=== PATIENT | male | born 1960 | race Two or more races ===

== ENCOUNTER 2017-02-12 12:33 | Emergency (ER) | payer MEDICAID ==
[~2017-02-12] VITALS: Ht 190.5 cm; Wt 144.2 kg
[~2017-02-12 12:33] MED LIST: ASPIRIN EC81 MG ORAL; BACTRIM-DS1 EA ORAL; METFORMIN HCL500 M1 ORAL; NKM
[2017-02-12 12:48] VITALS: BP 152/93
[2017-02-12] MEDS ORDERED: NKM (12:51)
--- NOTE | 2017-02-12 13:11 | Emergency Room Report ---
History of Present Illness General Chief Complaint: Skin Rash/Abscess Source: Patient, Medical Record Present Illness HPI 56 YO Male presents to the ED c/o worsening of LE wound with erythema and ulcer of the right lateral calf. x 3 weeks. Pt denies appreciable pain, he reports 3/10 tenderness that is exacerbated primarily with palpation. Patient reports that his PCP told him that he was diabetic and prescribed him medications however he felt that he did not have the symptoms that were described on his discharge paperwork so he never filled his prescription. Pt states his PCP rx'd him cream that he has been applying to wound, but feels has made the wound worse/bigger. Patient also states he was not prescribed a glucometer. Patient denies trauma or fall prior to onset of his symptoms. Patient reports decreased sensation in the bilateral lower extremities for "months". Patient denies posterior calf tenderness or claudication. He reports history of high blood pressure. Denies polyuria, polydipsia, or abdominal pain. Denies numbness tingling or loss of sensation or gross motor movements of the extremities, incontinence of bowel or bladder. Denies CP, Palpitations, LOC , AMS, dizziness, Changes in Vision, Sensation, paresthesias, or a sudden severe headache. Allergies: Coded Allergies: No Known Allergies (Unverified , 05/17/16) Patient History Past Medical History: see triage record Past Surgical History: none Pertinent Family History: none Immunizations: UTD Reviewed Nursing Documentation: PMH: Agreed, PSxH: Agreed Nursing Documentation-PM Past Medical History: No History, Except For Hx Cardiac Problems: Yes - Varicose vein surgery on right leg Hx Diabetes: Yes Hx Cancer: No Hx Gastrointestinal Problems: No Hx Neurological Problems: No Review of Systems All Other Systems: negative except mentioned in HPI Physical Exam Vital Signs Date Time Temp Pulse Resp B/P Pulse Ox O2 Delivery O2 Flow Rate FiO2 02/12/17 12:48 98.2 74 17 152/93 97 Room Air Sp02 EP Interpretation: reviewed, normal General Appearance: no apparent distress, alert, GCS 15, non-toxic Head: normocephalic, atraumatic Eyes: bilateral eye PERRL, bilateral eye normal inspection ENT: hearing grossly normal, normal pharynx, no angioedema, normal voice Neck: full range of motion, supple/symm/no masses Respiratory: lungs clear, normal breath sounds, speaking full sentences Cardiovascular #1: regular rate, rhythm, normal capillary refill, edema Cardiovascular #2: 2+ dorsalis pedis (R), 2+ dorsalis pedis (L) Genitourinary: normal inspection Musculoskeletal: back normal, gait/station normal, normal range of motion, tender - ttp to the anterior right calf, no posterior calf pain. swelling is bilateral LE's, erythema about the ulcer present on the right anteriolateral posada. 2.5cm in diameter. Neurologic: alert, oriented x3, responsive, motor strength/tone normal, sensory intact, normal gait Psychiatric: judgement/insight normal, memory normal, mood/affect normal Skin: no rash, warm/dry, well hydrated, other - swelling is bilateral LE's, erythema about the ulcer present on the right anteriolateral posada. 2.5cm in diameter. erythema does not extend into the posterior calf. Medical Decision Making PA Attestation Dr. Barker is my supervising Physician whom patient management has been discussed with. Diagnostic Impression: Primary Impression: Cellulitis Qualified Codes: L03.115 - Cellulitis of right lower limb Additional Impression: Diabetic ulcer of calf ER Course 56 YO Male presents to the ED c/o worsening of LE wound with erythema and ulcer of the right lateral calf. x 3 weeks. Pt denies appreciable pain, he reports 3/10 tenderness that is exacerbated primarily with palpation. Patient reports that his PCP told him that he was diabetic and prescribed him medications however he felt that he did not have the symptoms that were described on his discharge paperwork so he never filled his prescription. Pt states his PCP rx'd him cream that he has been applying to wound, but feels has made the wound worse/bigger. Patient also states he was not prescribed a glucometer. Patient denies trauma or fall prior to onset of his symptoms. Patient reports decreased sensation in the bilateral lower extremities for "months". Patient denies posterior calf tenderness or claudication. He reports history of high blood pressure. Denies polyuria, polydipsia, or abdominal pain. Denies numbness tingling or loss of sensation or gross motor movements of the extremities, incontinence of bowel or bladder. Denies CP, Palpitations, LOC , AMS, dizziness, Changes in Vision, Sensation, paresthesias, or a sudden severe headache. Ddx considered but are not limited to cellulitis, DVT, necrotizing fasciitis, osteomyelitis, fracture, d/L, gout Vital signs: are WNL, pt. is afebrile H&PE are most consistent with diabetic leg ulcer with secondary cellulitis. ORDERS: -CBC: no leukocytosis, unremarkable. -BMP: elevated glucose of 303 ED INTERVENTIONS: -Vancomycin IV -Metformin PO - Wound care/ dressing applied by RN. DISCHARGE: At this time pt. is stable for d/c to home with PO abx, and recommend [facility] and strict glydemic control. Pt. is also rx'd for glucometer, strips, and instructed to keep a log of glucose. Will provide printed patient care instructions, and any necessary prescriptions. Care plan and follow up instructions have been discussed with the patient prior to discharge. Labs Test 02/12/17 13:55 White Blood Count 8.0 K/UL (4.8-10.8) Red Blood Count 5.20 M/UL (4.70-6.10) Hemoglobin 16.0 G/DL (14.2-18.0) Hematocrit 49.1 % (42.0-52.0) Mean Corpuscular Volume 95 FL (80-99) Mean Corpuscular Hemoglobin 30.9 PG (27.0-31.0) Mean Corpuscular Hemoglobin Concent 32.6 G/DL (32.0-36.0) Red Cell Distribution Width 11.7 % (11.6-14.8) Platelet Count 190 K/UL (150-450) Mean Platelet Volume 9.5 FL (6.5-10.1) Neutrophils (%) (Auto) 57.3 % (45.0-75.0) Lymphocytes (%) (Auto) 29.7 % (20.0-45.0) Monocytes (%) (Auto) 6.7 % (1.0-10.0) Eosinophils (%) (Auto) 5.3 % (0.0-3.0) Basophils (%) (Auto) 1.0 % (0.0-2.0) Sodium Level 135 mEQ/L (135-145) Potassium Level 4.2 mEQ/L (3.4-4.9) Chloride Level 94 mEQ/L (98-107) Carbon Dioxide Level 24 mEQ/L (20-30) Anion Gap 17 (5-15) Blood Urea Nitrogen 13 mg/dL (7-23) Creatinine 0.7 mg/dL (0.7-1.2) Estimat Glomerular Filtration Rate > 60 mL/min (>60) Glucose Level 303 mg/dL (74-106) Calcium Level 9.5 mg/dL (8.6-10.2) Total Bilirubin 0.4 mg/dL (0.0-1.2) Aspartate Amino Transf (AST/SGOT) 19 U/L (5-40) Alanine Aminotransferase (ALT/SGPT) 34 U/L (3-41) Alkaline Phosphatase 94 U/L (40-129) Total Protein 8.0 g/dL (6.6-8.7) Albumin 4.0 g/dL (3.5-5.2) Globulin 4.0 g/dL Albumin/Globulin Ratio 1.0 (1.0-2.7) Last Vital Signs Date Time Temp Pulse Resp B/P Pulse Ox O2 Delivery O2 Flow Rate FiO2 02/12/17 12:48 98.2 74 17 152/93 97 Room Air Disposition: HOME, SELF-CARE Condition: Stable Scripts Trimethoprim/Sulfamethoxazole 160/800* (BACTRIM DS TABLET*) 1 Each Tablet 1 TAB ORAL TWICE A DAY for 7 Days, #14 TAB Prov: Karly Omer P.A. 02/12/17 Cephalexin* (KEFLEX*) 500 Mg Capsule 500 MG ORAL EVERY 12 HOURS for 10 Days, #20 CAP 0 Refills Prov: Karly Omer P.A. 02/12/17 Blood-Glucose Meter (BLOOD GLUCOSE METER) 1 Each Each 1 EACH MC BID, #1 Prov: Karly Omer.A. 02/12/17 Metformin Hcl* (METFORMIN HCL*) 500 Mg Tablet 500 MG ORAL TWICE A DAY for 30 Days, #60 TAB Prov: Kalry Omer P.A. 02/12/17 Patient Instructions: Blood Glucose Monitoring, Adult, Diabetes Mellitus and Food, Diabetes and Foot Care, Peripheral Neuropathy Additional Instructions: Take medications as directed. Follow up with PCP in 3 days to evaluate blood sugar management * Follow up with a CERAMIC DESIGN ENGINEER *8 Return sooner to ED if new symptoms occur, or current symptoms become worse. Take your diabetic medications Check your Blood sugar twice a day in the morning and at night , make sure to write it down/keep a log to bring with you to your doctor appointments - Please note that this Emergency Department Report was dictated using [employer] platforms technology software, occasionally this can lead to erroneous entry secondary to interpretation by the dictation equipment. Karly Omer. Feb 12, 2017 13:11
[2017-02-12] MEDS ORDERED: Vancomycin 1.5gm/D5W 250ml 325 ML IVPB ONE (13:45)
[2017-02-12 14:08] LABS: EOSINOPHILS % (AUTO) 5.3 % (0.0-3.0); LYMPHOCYTES % (AUTO) 29.7 % (20.0-45.0); MEAN CORPUSCULAR HEMOGLOBIN 30.9 PG (27.0-31.0); MEAN CORPUSCULAR HGB CONC 32.6 G/DL (32.0-36.0); MEAN CORPUSCULAR VOLUME 95 FL (80-99); MEAN PLATELET VOLUME 9.5 FL (6.5-10.1); MONOCYTES % (AUTO) 6.7 % (1.0-10.0); NEUTROPHILS % (AUTO) 57.3 % (45.0-75.0); PLATELET COUNT 190 K/UL (150-450); RED CELL DISTRIBUTION WIDTH 11.7 % (11.6-14.8)
[2017-02-12 14:24] LABS: ALANINE AMINOTRANSFERASE 34 U/L (3-41); ANION GAP 17 (5-15); ASPARTATE AMINO TRANSFERASE 19 U/L (5-40); CALCIUM 9.5 mg/dL (8.6-10.2); CARBON DIOXIDE 24 mEQ/L (20-30); CHLORIDE 94 mEQ/L (98-107); CREATININE 0.7 mg/dL (0.7-1.2); GLOMERULAR FILTRATION RATE > 60 mL/min (>60); HEMOLYSIS 5; POTASSIUM 4.2 mEQ/L (3.4-4.9); SODIUM 135 mEQ/L (135-145)
[2017-02-12] MEDS ORDERED: metFORMIN 500mg tab ORAL SCH (16:30)
[2017-02-12] MEDS ORDERED: BLOOD GLUCOSE1 EAC1 MC (17:00)
[2017-02-12] MEDS ORDERED: BACTRIM DS TAB1 EAC1 ORAL (17:00)
[2017-02-12] MEDS ORDERED: METFORMIN HCL500 M1 ORAL (17:00)
[2017-02-12] MEDS ORDERED: CEPHALEXIN500 MG ORAL (17:00)
[2017-02-12 17:45] VITALS: BP 152/95
== END 2017-02-12 18:23 | disposition home or self-care (01) ==
LOC: EMR 13:16
DX: L03.115 Cellulitis of right lower limb (principal); E11.622 Type 2 diabetes mellitus with other skin ulcer; L97.819 Non-pressure chronic ulcer of other part of right lower leg with unspecified severity; L97.829 Non-pressure chronic ulcer of other part of left lower leg with unspecified severity
CPT/HCPCS: 36415; 80053; 82962; 85025; 96365; 96366; 99284; J3370; 96374

== ENCOUNTER 2017-07-14 23:56 | Emergency (ER) | payer MEDICAID ==
[~2017-07-14] VITALS: Ht 190.5 cm; Wt 140.6 kg
[~2017-07-14 23:56] MED LIST changes: +BACTRIM DS TAB1 EAC1 ORAL; +BLOOD GLUCOSE1 EAC1 MC; +CEPHALEXIN500 MG ORAL
[2017-07-15] MEDS ORDERED: Ketorolac 30mg Inj IV ONE (00:45)
--- NOTE | 2017-07-15 00:58 | Emergency Room Report ---
History of Present Illness General Chief Complaint: Skin Rash/Abscess Source: Patient Present Illness HPI 57-year-old male with diabetes and high blood pressure walks in with 2 days of worsening pain, redness, and swelling to right foot. Also endorsing some pus discharge between toes. States things were removed in the right foot by surgery years ago because of "blocks". States saw PMD a few months ago who gave cream to put on right foot Denies fever, chills. Complaining of pain to area, has been taking ibuprofen with some improvement. Allergies: Coded Allergies: No Known Allergies (Unverified , 05/17/16) Patient History Past Medical History: DM, HTN Past Surgical History: other - "veins removed from right leg" Pertinent Family History: none Social History: Denies: smoking, alcohol use, drug use Immunizations: UTD Reviewed Nursing Documentation: PMH: Agreed, PSxH: Agreed Nursing Documentation-PMH Hx Cardiac Problems: Yes - Varicose vein surgery on right leg Hx Diabetes: Yes Hx Cancer: No Hx Gastrointestinal Problems: No Hx Neurological Problems: No Review of Systems All Other Systems: negative except mentioned in HPI Physical Exam Vital Signs Date Time Temp Pulse Resp B/P (MAP) Pulse Ox O2 Delivery O2 Flow Rate FiO2 07/14/17 23:59 98.1 79 18 154/87 95 Room Air Sp02 EP Interpretation: reviewed, normal General Appearance: normal inspection, well appearing, no apparent distress, alert, GCS 15, non-toxic Head: normocephalic, atraumatic Eyes: bilateral eye PERRL, bilateral eye EOMI ENT: normal ENT inspection, hearing grossly normal, normal voice Neck: normal inspection, full range of motion, supple, no bony tend Respiratory: normal inspection, lungs clear, normal breath sounds, no respiratory distress, no retraction, no wheezing Cardiovascular #1: regular rate, rhythm, no edema Gastrointestinal: normal inspection, normal bowel sounds, non tender, soft, no guarding, no hernia Genitourinary: no CVA tenderness Musculoskeletal: normal inspection, back normal, normal range of motion, Evans' s Sign negative, other - right leg: chronic venous stasis dermatitis; dry, scaly , hairless, shiny, hardened skin. Right foot has dorsal erythema, some pus between toes, mild appreciable topical warmth. Able to move toes. Neurologic: normal inspection, alert, oriented x3, responsive, cloth layer III-XII nml as tested, speech normal Psychiatric: normal inspection, judgement/insight normal, mood/affect normal Skin: normal inspection, normal color, no rash Medical Decision Making Diagnostic Impression: Primary Impression: Right foot pain Additional Impression: Cellulitis and abscess of foot ER Course 57-year-old male with right foot pain No leukocytosis or labs Elevated glucose consistent with known diabetes however K. is normal and anion gap is normal, unlikely DKA. X-ray on stat read review negative for osteo. Will treat with outpatient antibiotics, Bactrim and Keflex Advise close primary care followup understands to return for worsening pain, infection, fever chills ER course: Patient has remained stable during ED stay. Disposition: Patient is to be discharged to home. Prescriptions given are keflex, bactrim Patient is instructed to follow up with their primary care doctor within 5 days. Strict return precautions discussed with patient such as fever, chills, worsening/severe pain, nausea, vomiting, which may indicate severe illness. Patient verbalizes understanding and agrees with plan. Please note that this Emergency Department Report was dictated using Mapplump receiver technology software, occasionally this can lead to erroneous entry secondary to interpretation by the dictation equipment Last Vital Signs Date Time Temp Pulse Resp B/P (MAP) Pulse Ox O2 Delivery O2 Flow Rate FiO2 07/14/17 23:59 98.1 79 18 154/87 95 Room Air Status: improved Disposition: HOME, SELF-CARE Scripts Cephalexin* (KEFLEX*) 500 Mg Capsule 500 MG ORAL Q6H for 7 Days, #28 CAP 0 Refills Prov: LOUIS HERRERA M.D. 07/15/17 Trimethoprim/Sulfamethoxazole 160/800* (BACTRIM DS TABLET*) 1 Each Tablet 1 TAB ORAL Q12H for 7 Days, #14 TAB 0 Refills Prov: LOUIS HERRERA M.D. 07/15/17 LOUIS HERRERA M.D. Jul 15, 2017 00:58
[2017-07-15 01:08] LABS: EOSINOPHILS % (AUTO) 5.1 % (0.0-3.0); LYMPHOCYTES % (AUTO) 24.4 % (20.0-45.0); MEAN CORPUSCULAR HEMOGLOBIN 31.3 PG (27.0-31.0); MEAN CORPUSCULAR HGB CONC 33.3 G/DL (32.0-36.0); MEAN CORPUSCULAR VOLUME 94 FL (80-99); MEAN PLATELET VOLUME 9.9 FL (6.5-10.1); MONOCYTES % (AUTO) 6.9 % (1.0-10.0); NEUTROPHILS % (AUTO) 62.7 % (45.0-75.0); PLATELET COUNT 204 K/UL (150-450); RED BLOOD COUNT 5.06 M/UL (4.70-6.10); RED CELL DISTRIBUTION WIDTH 11.7 % (11.6-14.8); WHITE BLOOD COUNT 9.2 K/UL (4.8-10.8)
[2017-07-15 01:35] LABS: ALANINE AMINOTRANSFERASE 32 U/L (12-78); ALBUMIN/GLOBULIN RATIO 0.8 (1.0-2.7); ANION GAP 8 mmol/L (5-15); ASPARTATE AMINO TRANSFERASE 10 U/L (15-37); CALCIUM 9.4 MG/DL (8.5-10.1); CARBON DIOXIDE 28 MMOL/L (21-32); CHLORIDE 99 MMOL/L (98-107); GLOMERULAR FILTRATION RATE > 60 mL/min (>60); POTASSIUM 3.9 MMOL/L (3.5-5.1); SODIUM 135 MMOL/L (136-145); TOTAL PROTEIN 8.5 G/DL (6.4-8.2)
[2017-07-15] MEDS ORDERED: KEFLEX500 MG ORAL (01:51)
[2017-07-15] MEDS ORDERED: BACTRIM DS TAB1 EAC1 ORAL (01:51)
[2017-07-15 02:07] VITALS: BP 154/87
--- NOTE | 2017-07-15 11:50 | Diagnostic Imaging Report ---
Indication: PAIN Technique: 3 views right foot Comparison: none Findings: No acute fractures. No dislocations. There is minimal degenerative change of the first metatarsal phalangeal joint. The remaining joint spaces are preserved Impression: No acute process This agrees with the preliminary interpretation provided overnight by [employer] teleradiology service.
== END 2017-07-15 02:07 | disposition home or self-care (01) ==
LOC: EMR 07-15 00:20
DX: M79.671 Pain in right foot (principal); L03.115 Cellulitis of right lower limb; E11.9 Type 2 diabetes mellitus without complications; I10 Essential (primary) hypertension
CPT/HCPCS: 36415; 73630; 80053; 85025; 96374; 99284; J1885

== ENCOUNTER 2018-11-10 19:39 | Emergency (ER) | payer MEDICAID ==
[~2018-11-10] VITALS: Ht 190.5 cm; Wt 132.0 kg
[~2018-11-10 19:39] MED LIST changes: +KEFLEX500 MG ORAL
[2018-11-10 19:41] VITALS: BP 149/88
[2018-11-10] MEDS ORDERED: LOVASTATIN20 MG ORAL (19:48)
[2018-11-10] MEDS ORDERED: ENALAPRIL-HCTZ1 EACH ORAL (19:48)
[2018-11-10] MEDS ORDERED: IBUPROFEN800 MG ORAL (19:48)
--- NOTE | 2018-11-10 20:18 | Emergency Room Report ---
History of Present Illness General Chief Complaint: Pain Source: Patient Present Illness HPI 58-year-old male patient presents the ER complaining of left foot pain for the past 2 weeks. Reports pain is on the bottom of his left foot. Denies acute injury or accident. Denies calf pain. Denies chest pain or shortness of breath. Reports history of peripheral vascular disease in his right l denies ulcer or open wound. Reports for similar symptoms, states that he was told it related to his diabetes. States his been taking Motrin for pain which helps to alleviate pain symptoms. Denies other aggravating or relieving factors. Allergies: Coded Allergies: No Known Allergies (Unverified , 05/17/16) Patient History Past Medical History: see triage record Reviewed Nursing Documentation: PMH: Agreed; PSxH: Agreed Nursing Documentation-PMH Hx Cardiac Problems: Yes - Varicose vein surgery on right leg Hx Hypertension: Yes Hx Diabetes: Yes Hx Cancer: No Hx Gastrointestinal Problems: No Hx Neurological Problems: No Review of Systems All Other Systems: negative except mentioned in HPI Physical Exam Vital Signs Date Time Temp Pulse Resp B/P (MAP) Pulse Ox O2 Delivery O2 Flow Rate FiO2 11/10/18 19:41 98.2 79 18 149/88 95 Room Air Sp02 EP Interpretation: reviewed, normal General Appearance: well appearing, no apparent distress, alert, GCS 15, non- toxic Head: normocephalic, atraumatic Eyes: bilateral eye normal inspection, bilateral eye PERRL ENT: hearing grossly normal, normal pharynx, no angioedema, normal voice, uvula midline, moist mucus membranes Neck: full range of motion Respiratory: lungs clear, normal breath sounds, no rhonchi, no respiratory distress, no accessory muscle use, no wheezing, speaking full sentences Cardiovascular #1: regular rate, rhythm, no edema, normal capillary refill Cardiovascular #2: 2+ dorsalis pedis (R), 2+ dorsalis pedis (L) Musculoskeletal: back normal, digits/nails normal, gait/station normal, normal range of motion, non-tender, no calf tenderness, Evans's Sign negative, other - NVI, cap refill less than 2 seconds, no erythema, no edema, no gouty tophi, no podagra Neurologic: alert, oriented x3, responsive, motor strength/tone normal, sensory intact Skin: no rash, other - No stasis ulcers Medical Decision Making PA Attestation Dr. Yadav is my supervising Physician whom patient management has been discussed with. Diagnostic Impression: Primary Impression: Foot pain, left Additional Impression: Hx of diabetes mellitus ER Course Pt. presents to the ED c/o left foot pain. Ddx considered but are not limited to fracture, sprain, strain, contusion, dislocation, DVT, cellulitis, peripheral vascular disease, arthritis, gout. Negative Homans sign, denies calf pain, no unilateral leg swelling, low suspicion for DVT per well's criteria. No erythema, no warmth to touch, no fever, nontoxic appearing, low suspicion for septic joint. Soft compartments, no pulselessness, no pallor, no paresthesias, low suspicion for compartment syndrome at this time. Vital signs: are WNL, pt. is afebrile Ordered X-ray and pain medication. ER COURSE Provided with pain medication. An X-ray of the left foot shows no acute fracture. Discuss results with the patient. Provided patient with copy of results. Instructed patient to followup with PCP and discuss results of report with patient, discuss need for further treatment and referral. Cane provided. Patient instructed on RICE method: rest, ice, compression, elevation. Patient instructed on rest, ice and heat. Patient instructed to be WBAT Provided with contact information for sales route driver. Contact information for orthopedic urgent care provided, follow-up with urgent care if unable to followup with primary care provider and get referral to language specialist. Followup with primary care provider. Discuss referral to ortho/pain management/ PT as needed. Discuss further imaging with MRI/CT as needed. Prior to discharge, patient requesting to have blood glucose checked and requesting prescription for glucometer and blood glucose strips. States" to ask for these from their primary care provider last week. Blood glucose in the ER is 213, patient states that he took his metformin earlier today. Does not require immediate intervention in the ER. Will discharge home with prescription for glucometer and glucose test strips. Advised patient follow with primary care provider to discuss further treatment and evaluation. Discussed need for diet and exercise to help control blood glucose. ER precautions given. DISCHARGE: At this time pt. is stable for d/c to home. Patient is resting comfortably, in no acute distress, nontoxic appearing, talking without difficulty. Will provide printed patient care instructions, and any necessary prescriptions. Patient instructed to follow with primary care provider in 3 - 5 days and to request further follow-up as needed. Care plan and follow up instructions have been discussed with the patient prior to discharge. Take medications as directed. Patient questions asked and answered. Patient reports understanding and agreement to treatment plan. ER precautions given, patient instructed to return to ER immediately for any new or worsening of symptoms. - Please note that this Emergency Department Report was dictated using [employer] Comfortairplane cover maker technology software, occasionally this can lead to erroneous entry secondary to interpretation by the dictation equipment. Other X-Ray Diagnostic Results Other X-Ray Diagnostic Results : X-Ray ordered: Left foot # of Views/Limited Vs Complete: 3 View Indication: Pain EP Interpretation: Yes PA Xray: Interpretation reviewed, by supervising MD, and agrees with findings. Interpretation: no dislocation, no soft tissue swelling, no fractures, other - Degenerative changes, calcaneal heel spur Impression: No acute disease PA Scribe Text Mele Boone PA-C Last Vital Signs Date Time Temp Pulse Resp B/P (MAP) Pulse Ox O2 Delivery O2 Flow Rate FiO2 11/10/18 19:41 98.2 79 18 149/88 95 Room Air Status: improved Disposition: HOME, SELF-CARE Condition: Stable Scripts Blood Sugar Diagnostic (GLUCOSE TEST STRIP) 1 Each Strip EACH , #50 Prov: Noel Boone 11/10/18 Blood-Glucose Meter (ADVOCATE BLOOD GLUCOSE MONITOR) 1 Each Each EACH , #1 Prov: Noel Boone 11/10/18 Ibuprofen* (MOTRIN*) 600 Mg Tablet 600 MG ORAL Q8H PRN for For Pain, #30 TAB 0 Refills Prov: Noel Boone 11/10/18 Patient Instructions: Diabetes and Foot Care, Foot Contusion Additional Instructions: Follow-up with sales route driver. Patient instructed to follow up with primary care provider and discuss further referral to orthopedics/physical therapy/pain management as needed. If unable to followup with PCP, followup with orthopedic urgent care in 5-7 days , call to schedule appointment. Patient instructed on RICE method: rest, ice, compression, elevation. Patient instructed to NWB. Follow-up with vascular specialist and surgeon. Follow-up with primary care provider to discuss blood sugar and diabetes control. Take medications as directed. Patient questions asked and answered. ER precautions given, patient instructed to return to ER immediately for any new or worsening of symptoms. [facility] [address] [facility] [address] [facility], [address] [email or web address] Noel Boone Nov 10, 2018 20:18
[2018-11-10 20:58] VITALS: BP 149/88
[2018-11-10] MEDS ORDERED: IBUPROFEN600 MG ORAL (20:58)
[2018-11-10] MEDS ORDERED: ADVOCATE BLOOD1 EACH MC (20:58)
[2018-11-10] MEDS ORDERED: GLUCOSE TEST S1 EACH MC (20:58)
--- NOTE | 2018-11-11 12:21 | Diagnostic Imaging Report ---
Indication: Foot pain Comparison: None Findings: 3 views of the left foot were obtained. No acute fractures, malalignment, erosions or periostitis are identified. Soft tissues are unremarkable. Impression: No acute findings
== END 2018-11-10 21:00 | disposition home or self-care (01) ==
LOC: EMR 20:25
DX: M79.672 Pain in left foot (principal); E11.9 Type 2 diabetes mellitus without complications; I10 Essential (primary) hypertension; I73.9 Peripheral vascular disease, unspecified
CPT/HCPCS: 82962; 99283

== ENCOUNTER 2020-04-02 23:09 | Emergency (ER) | payer MEDICAID ==
[~2020-04-02] VITALS: Ht 190.5 cm; Wt 136.1 kg
[~2020-04-02 23:09] MED LIST changes: +ADVOCATE BLOOD1 EACH MC; +ENALAPRIL-HCTZ1 EACH ORAL; +GLUCOSE TEST S1 EACH MC; +IBUPROFEN600 MG ORAL; +IBUPROFEN800 MG ORAL; +LOVASTATIN20 MG ORAL
--- NOTE | 2020-04-02 23:15 | NUR ---
ED Nurse Note: Walk-in patient with complaints of pain at right anterior lower leg due to venous ulcer.
[2020-04-02] MEDS ORDERED: BACITRACIN15 GM TOPIC (23:47)
[2020-04-02] MEDS ORDERED: CEPHALEXIN500 MG ORAL (23:47)
[2020-04-03] MEDS ORDERED: Bacitracin Oint UD TOPIC ONE
[2020-04-03] MEDS ORDERED: Cephalexin 500mg cap ORAL ONE
[2020-04-03 00:03] VITALS: BP 154/80
--- NOTE | 2020-04-03 00:03 | NUR ---
ER DISCHARGE NOTE: Patient is cleared to be discharged per ERMD. Wound irrigated, antibacterial ointment placed and would dressed with 4X4 guaze, coban and kerlix to create pressure at the site. Patient is in stable condition, verbalized understanding of discharge instructions and departed with all belongings. Patient intends to call someone to pick him up but no one answered. Alternative options for transport explored.
--- NOTE | 2020-04-03 00:38 | Emergency Room Report ---
History of Present Illness General Chief Complaint: Lower Extremity Injury Source: Patient Present Illness HPI 59-year-old male presents for bleeding to right leg. Brought in by EMS from home. States that he has varicose veins and it started bleeding tonight. Denies any fall or injury. States that dressing was applied by EMS. Pain is dull, 7 out of 10, nonradiating. Has had similar episodes in the past. Denies taking blood thinners. Denies any fevers or chills. No other aggravating relieving factors. Denies any other associated symptoms Allergies: Coded Allergies: No Known Allergies (Unverified , 04/02/20) COVID-19 Screening Contact w/high risk pt: No Experienced COVID-19 symptoms?: No COVID-19 Testing performed SYNTHETIC SOIL BLOCKS PULPER: No Patient History Past Medical History: DM, HTN Past Surgical History: none Pertinent Family History: none Social History: Denies: smoking, alcohol use, drug use Immunizations: UTD Reviewed Nursing Documentation: PMH: Agreed; PSxH: Agreed Nursing Documentation-PMH Hx Hypertension: Yes Hx Diabetes: Yes Review of Systems All Other Systems: negative except mentioned in HPI Physical Exam Vital Signs Date Time Temp Pulse Resp B/P (MAP) Pulse Ox O2 Delivery O2 Flow Rate FiO2 04/02/20 23:14 98.2 80 16 154/80 (104) 98 Room Air Sp02 EP Interpretation: reviewed, normal General Appearance: no apparent distress, alert, GCS 15, non-toxic Head: normocephalic, atraumatic Eyes: bilateral eye normal inspection, bilateral eye PERRL ENT: hearing grossly normal, normal pharynx, no angioedema, normal voice Neck: full range of motion, supple/symm/no masses Respiratory: chest non-tender, lungs clear, normal breath sounds, speaking full sentences Cardiovascular #1: regular rate, rhythm, no edema Cardiovascular #2: 2+ carotid (R), 2+ carotid (L), 2+ radial (R), 2+ radial (L) , 2+ dorsalis pedis (R), 2+ dorsalis pedis (L) Gastrointestinal: normal bowel sounds, non tender, soft, non-distended, no guarding, no rebound Rectal: deferred Genitourinary: normal inspection, no CVA tenderness Musculoskeletal: back normal, normal range of motion, gait/station normal, non- tender Neurologic: alert, motor strength/tone normal, oriented x3, sensory intact, responsive, speech normal Psychiatric: judgement/insight normal, memory normal, mood/affect normal, no suicidal/homicidal ideation Reflexes: 3+ bicep (R), 3+ bicep (L), 3+ tricep (R), 3+ tricep (L), 3+ knee (R) , 3+ knee (L) Skin: other - 2x2cm ulceration to RLE. no induration/erythema. no active bleeding Lymphatic: no adenopathy Medical Decision Making Diagnostic Impression: Primary Impression: Bleeding from varicose vein ER Course Hospital Course 59 yo M presents to ED c/o bleeding RLE Differential diagnoses include: Cellulitis, dermatitis, insect bite, abscess Clinical course Patient placed on stretcher. After initial history, physical exam reveals a male in no acute distress. On exam there is an 2x2cm ulceration to RLE. no active bleeding. no erythema or induration. Patient has good distal pulses. Appears well, nontoxic appearing. Irrigated. Bacitracin dressing applied. Given antibiotics. Safe for discharge with close outpatient follow-up. States he has a PMD. Diagnosis - bleeding from varicose vein stable and discharged to home with prescription for bacitracin, Keflex. wound care instructions given. Instructed to followup with PMD. Instructed return to ED if symptoms recur or worsen Last Vital Signs Date Time Temp Pulse Resp B/P (MAP) Pulse Ox O2 Delivery O2 Flow Rate FiO2 04/03/20 00:03 98.2 16 154/80 98 Room Air 04/02/20 23:14 80 Status: improved Disposition: HOME, SELF-CARE Condition: Stable Scripts Cephalexin* (KEFLEX*) 500 Mg Capsule 500 MG ORAL EVERY 6 HOURS for 7 Days, CAP Prov: Jaime Yadav MD 04/02/20 Bacitracin (Bacitracin) 28.4 Gm Oint...g. 1 APPLIC TOPIC THREE TIMES A DAY, #28.4 GM Prov: Jaime Yadav MD 04/02/20 Referrals: NON PHYSICIAN (PCP) Romain Lopes Comp. [facility] Patient Instructions: Bleeding Varicose Veins Jaime Yadav MD Apr 03, 2020 00:38
--- NOTE | 2020-04-03 00:58 | NUR ---
ED Nurse Note: Patient departed to waiting room to wait for his boss to pick him up.
== END 2020-04-03 00:58 | disposition home or self-care (01) ==
LOC: EDBD 23:09 → MERGE 23:35 → EMR 23:35
DX: I83.891 Varicose veins of right lower extremity with other complications (principal); E11.9 Type 2 diabetes mellitus without complications; I10 Essential (primary) hypertension
CPT/HCPCS: 99282